=== PATIENT | female | born 1970 | race Caucasian/White ===

== ENCOUNTER → 2024-04-08 | Outpatient (CLI) | payer OTHER ==
--- NOTE | 2024-04-08 09:56 | US ---
EXAMINATION TYPE: US abdomen complete DATE OF EXAM: 04/08/2024 COMPARISON: NONE CLINICAL INDICATION: Female, 53 years old with history of R74.8 ABNORMAL LEVELS OF OTHER S;Elevated l iver enzymes, Hx alcohol use x3/day - quit 1 month ago. Hx Cholecystectomy TECHNIQUE: Multiple sonographic images of the abdomen are obtained. FINDINGS: EXAM MEASUREMENTS: Liver Length: 19.0 cm Gallbladder Wall: Surgically absent cm CBD: 0.7 m Spleen: 15.0 cm Right Kidney: 11.5 x 5.9 x 5.3 cm Left Kidney: 12.2 x 4.3 x 4.7 cm Pancreas: wnl Liver: Increased attenuation hyperechoic lesion may be present within the liver measuring up to 21 mm on image 26 of 66. Gallbladder: Surgically absent Evidence for sonographic Almaraz's sign: No CBD: wnl Spleen: Enlarged; accessory spleen Right Kidney: wnl Left Kidney: wnl Upper IVC: wnl Abd Aorta: wnl The intrahepatic portion of the IVC and proximal abdominal aorta are within normal limits. Common bi le duct is unremarkable. The visualized portions of the pancreas are homogenous. Kidneys are symmetr ic and free of hydronephrosis. No renal lesions are seen. IMPRESSION: 1. Hepatic steatosis. 2. There is a focal area of anterior fat and interdigitating near falciform ligament versus hemangio ma versus other. Consider further evaluation of the liver with cross-sectional imaging CT or MRI for confirmation. Image 26 of 66
== END | disposition home or self-care (01) ==
LOC: RADUSWWP 08:49
PROVIDERS: ATTEND Family Medicine
DX: R74.8 Abnormal levels of other serum enzymes (principal); K76.0 Fatty (change of) liver, not elsewhere classified; Z90.49 Acquired absence of other specified parts of digestive tract
CPT/HCPCS: 76700

== ENCOUNTER → 2024-05-03 | Outpatient (CLI) | payer OTHER ==
--- NOTE | 2024-05-03 13:14 | CT ---
EXAMINATION TYPE: CT abdomen pelvis wo/w con CT DLP: 2225.80 mGycm, Automated exposure control for dose reduction was used. DATE OF EXAM: 05/03/2024 12:31 PM COMPARISON: Abdominal ultrasound 04/08/2024 CLINICAL INDICATION:Female, 53 years old with history of K76.9 HEPATIC LESION; Elevated liver enzymes , hepatic lesion TECHNIQUE: Standard CT of the abdomen and pelvis before and after the uneventful administration of 100 mL Isovue 300 intravenously. Oral contrast was administered. Coronal and sagittal reformats were performed. FINDINGS: LOWER CHEST: Unremarkable ABDOMEN LIVER: Mildly enlarged measuring 19.9 cm in CC dimension. Diffuse low-attenuation of the liver. Ill-d efined region of subtle hyperattenuation in the region of falciform ligament compared to the surround ing parenchyma. GALLBLADDER AND BILE DUCTS: The gallbladder is surgically absent. No biliary ductal dilatation. PANCREAS: Unremarkable. SPLEEN: Mildly enlarged measuring 14.5 cm in AP dimension. ADRENAL GLANDS: Unremarkable. KIDNEYS AND URETERS: No evidence of hydronephrosis. Nonobstructive right lower pole 3 mm calculus. Co ntrast is demonstrated within both collecting systems on the delayed phase. PELVIS BLADDER: Incompletely distended but grossly unremarkable. REPRODUCTIVE: Unremarkable. ABDOMEN & PELVIS STOMACH AND BOWEL: Small hiatal hernia with gastric sleeve changes.Enteric contrast reaches the mid s mall bowel. Distal colonic diverticulosis without evidence for acute diverticulitis. Submucosal fat d eposition within the ascending colon. No evidence of bowel obstruction. PERITONEUM: No evidence of pneumoperitoneum. Small amount of free fluid within the abdomen and pelvis . VASCULATURE: No evidence of aortic aneurysm. Pelvic phleboliths. MUSCULOSKELETAL: No acute osseous abnormalities. Postsurgical changes from right total hip arthroplas ty. Mild degenerative disc disease. LYMPH NODES: No gross evidence for lymphadenopathy. SOFT TISSUE/ABDOMINAL WALL: Left gluteal soft tissue 2.5 cm lesion. IMPRESSION: 1. Patchy geographic hypoattenuation within the liver most consistent with geographic fatty liver di sease. No focal lesion corresponding to ultrasound finding. Probable fatty infiltration. 2. Mild hepatosplenomegaly. 3. Small ascites throughout the abdomen and pelvis. 4. Colonic diverticulosis with submucosal fat deposition within the ascending colon. Can be seen wit h chronic inflammatory disease. 5. Nonobstructive right renal calculus. 6. Indeterminate left gluteal soft tissue 2.5 cm lesion. May represent a hematoma versus other etiol ogies. Can be further evaluated with ultrasound as clinically indicated. [facility], , 05/03/2024 1:12 PM
== END | disposition home or self-care (01) ==
LOC: RADCTMAIN 10:07
PROVIDERS: ATTEND Family Medicine
DX: Z12.31 Encounter for screening mammogram for malignant neoplasm of breast
CPT/HCPCS: 74178

== ENCOUNTER 2024-05-10 08:02 | Emergency (ER) | payer OTHER ==
[2024-05-10 08:07] VITALS: TEMP 97.9
[2024-05-10] MEDS: MORPHINE SULFATE 4 MG/ML SYRINGE IVP STA (08:24)
[2024-05-10] MEDS: KETOROLAC 15 MG/ML 1 ML VIAL IVP STA (08:25)
[2024-05-10] MEDS: LIDOCAINE 4% PATCH TOPICAL ONE (08:25)
--- NOTE | 2024-05-10 08:26 | ED ---
Fall HPI - General Chief Complaint: Fall Stated Complaint: Back Pain Time Seen by Provider: 05/10/24 08:07 Source: patient, RN notes reviewed Mode of arrival: wheelchair Limitations: no limitations - History of Present Illness Initial Comments: This is a 53-year-old female who presents to the emergency department for pain over the left rib cage. Patient fell last week and landed on her left side. She was initially just having pain over the left rib cage. She went to urgent care and had x-rays that were negative. States that since then she has started to become nauseous with increasing pain. Pain is now in the left upper quadrant. Unsure if the pain she originally had is getting worse or if this is related to something different. Pain is worse if she tries to take a deep breath. States that she is also very tender to the touch. MD Complaint: fall - Related Data Previous Rx's Medication Instructions Recorded Ketorolac [Toradol] 10 mg PO Q6HR PRN #15 tab 05/10/24 Lidocaine 5% Patch [Lidoderm 5% 1 patch TOPICAL DAILY PRN #30 patch 05/10/24 Patch] methocarbamoL [Robaxin-750] 1,500 mg PO TID PRN #30 tab 05/10/24 Allergies Allergy/AdvReac Type Severity Reaction Status Date / Time No Known Allergies Allergy Verified 05/10/24 08:07 Review of Systems ROS Statement: Those systems with pertinent positive or pertinent negative responses have been documented in the HPI. ROS Other: All systems not noted in ROS Statement are negative. Past Medical History Past Medical History: Hypertension History of Any Multi-Drug Resistant Organisms: MRSA Date of last positivie culture/infection: 01/2024 MDRO Source:: R leg Past Surgical History: Cholecystectomy, Orthopedic Surgery Additional Past Surgical History / Comment(s): gastric bypass Past Psychological History: Anxiety Smoking Status: Never smoker Past Alcohol Use History: None Reported Past Drug Use History: None Reported General Exam Limitations: no limitations General appearance: alert, in no apparent distress Head exam: Present: atraumatic, normocephalic, normal inspection Respiratory exam: Present: normal lung sounds bilaterally, chest wall tenderness. Absent: respiratory distress, wheezes, rales, rhonchi, stridor Cardiovascular Exam: Present: regular rate, normal rhythm, normal heart sounds. Absent: systolic murmur, diastolic murmur, rubs, gallop, clicks GI/Abdominal exam: Present: soft, tenderness (LUQ), normal bowel sounds. Absent: distended Neurological exam: Present: alert, oriented X3, CN II-XII intact Psychiatric exam: Present: normal affect, normal mood Skin exam: Present: warm, dry, intact, normal color. Absent: rash Course Vital Signs 05/10/24 05/10/24 08:03 10:53 Temperature 97.9 F Pulse Rate 119 H 68 Respiratory 22 16 Rate Blood Pressure 149/90 112/70 O2 Sat by Pulse 99 99 Oximetry Medical Decision Making - Medical Decision Making This is a 53 year old female who presents to the emergency department for left sided rib pain. Was pt. sent in by a medical professional or institution? @ -No Did you speak to anyone other than the patient for history? @ -No Did you review nursing and triage notes? @ -Yes, and I agree, it is accurate with regards to the patient's symptoms. Were old charts reviewed? @ -No Differential Diagnosis? @ -Differential Rib Pain: Contusion, pneumothorax, rib fracture, pancreatitis, this is not meant to be an all-inclusive list. EKG interpreted by me (3pts min.)? @ -EKG interpreted by me demonstrating the following: Sinus rhythm. Ventricular rate 60 bpm, LA interval 149 ms, QRS duration 98 ms, QTc 480 ms. X-rays interpreted by me (1pt min.)? @ -Chest x-ray obtained, my interpretation identifies no localized cons olidations or infiltrates. CT interpreted by me (1pt min.)? @ -CT scan of the chest obtained. My interpretation identifies no evidence of any rib fractures. U/S interpreted by me (1pt. min.)? @ -Not obtained What testing was considered but not performed? (CT, X-rays, U/S, labs)? Why? @ -None What meds were considered but not given? Why? @ -None Did you discuss the management of the patient with other professionals? @ -No Did you reconcile home meds? @ -No Was smoking cessation discussed for >3mins.? @ -No Was critical care preformed (if so, how long)? @ -No Were there social determinants of health that impacted care today? How? (Homelessness, low income, unemployed, alcoholism, drug addiction, transportation, low edu. Level, literacy, decrease access to med. care, correction, rehab)? @ -No Was there de-escalation of care discussed even if they declined? (Discuss DNR or withdrawal of care, Hospice)? @ -No What co-morbidities impacted this encounter? (DM, HTN, Smoking, COPD, CAD, Cancer, CVA, Hep., AIDS, mental health diagnosis, sleep apnea, morbid obesity)? @ -Liver problems, HTN Was patient admitted / discharged? @ -Discharged. Given patient's concern for the pain worsening and potentially changing, we did obtain lab work. Lactic acid is elevated and potassium was slightly decreased. She was treated with IV fluids and 40 mEq of K-Dur. Elevated bilirubin is consistent with patient's known history of liver disease. We initially obtained an x-ray of the left rib cage and chest, however no acute fracture was identified. We then proceeded with a CT scan of the chest, however again there was no acute fracture or other acute process identified. Pain was managed in the emergency department. Prescription for Toradol, Robaxin, and lidocaine patches provided. She is advised to take several deep breaths an hour despite the pain to reduce the risk of developing a secondary pneumonia. Case discussed with ED attending Dr. Ontiveros. Return precautions reviewed in depth, the patient is instructed to return to the emergency department with any new, worsening, or concerning symptoms. Patient verbalized understanding. Undiagnosed new problem with uncertain prognosis? @ -None Drug Therapy requiring intensive monitoring for toxicity (Heparin, Nitro, Insulin, Cardizem)? @ -None Were any procedures done? @ -None Diagnosis/symptom? @ -Fall, left rib contusion Acute, or Chronic, or Acute on Chronic? @ -Acute Uncomplicated (without systemic symptoms) or Complicated (systemic symptoms)? @ -Uncomplicated Side effects of treatment? @ -None Exacerbation, Progression, or Severe Exacerbation] @ -Not applicable Poses a threat to life or bodily function? @ -No - Lab Data Result diagrams: 05/10/24 08:21 05/10/24 08:21 Lab Results 05/10/24 05/10/24 05/10/24 Range/Units 08:21 08:21 08:21 WBC 5.1 (3.8-10.6) k/uL RBC 3.12 L (3.80-5.40) m/uL Hgb 9.8 L (11.4-16.0) gm/dL Hct 29.5 L (34.0-46.0) % MCV 94.6 (80.0-100.0) fL MCH 31.5 (25.0-35.0) pg MCHC 33.2 (31.0-37.0) g/dL RDW 14.3 (11.5-15.5) % Plt Count 63 L (150-450) k/uL MPV 8.0 Neutrophils % 78 % Lymphocytes % 12 % Monocytes % 5 % Eosinophils % 2 % Basophils % 0 % Neutrophils # 4.0 (1.3-7.7) k/uL Lymphocytes # 0.6 L (1.0-4.8) k/uL Monocytes # 0.3 (0-1.0) k/uL Eosinophils # 0.1 (0-0.7) k/uL Basophils # 0.0 (0-0.2) k/uL Manual Slide Review Performed Hypochromasia Slight Sodium 138 (137-145) mmol/L Potassium 3.2 L (3.5-5.1) mmol/L Chloride 100 (98-107) mmol/L Carbon Dioxide 25 (22-30) mmol/L Anion Gap 13 mmol/L BUN 8 (7-17) mg/dL Creatinine 0.67 (0.52-1.04) mg/dL Est GFR (CKD-EPI)AfAm >90 (>60 ml/min/1.73 sqM) Est GFR (CKD-EPI)NonAf >90 (>60 ml/min/1.73 sqM) Glucose 95 (74-99) mg/dL Lactic Ac Sepsis Rflx Plasma Lactic Acid Frank 3.2 H* (0.7-2.0) mmol/L Calcium 9.3 (8.4-10.2) mg/dL Total Bilirubin 3.0 H (0.2-1.3) mg/dL AST 63 H (14-36) U/L ALT 19 (4-34) U/L Alkaline Phosphatase 108 (38-126) U/L Total Protein 8.1 (6.3-8.2) g/dL Albumin 4.0 (3.5-5.0) g/dL Amylase 72 (30-110) U/L Lipase 115 (23-300) U/L 10/01/24 Range/Units 09:12 WBC (3.8-10.6) k/uL RBC (3.80-5.40) m/uL Hgb (11.4-16.0) gm/dL Hct (34.0-46.0) % MCV (80.0-100.0) fL MCH (25.0-35.0) pg MCHC (31.0-37.0) g/dL RDW (11.5-15.5) % Plt Count (150-450) k/uL MPV Neutrophils % % Lymphocytes % % Monocytes % % Eosinophils % % Basophils % % Neutrophils # (1.3-7.7) k/uL Lymphocytes # (1.0-4.8) k/uL Monocytes # (0-1.0) k/uL Eosinophils # (0-0.7) k/uL Basophils # (0-0.2) k/uL Manual Slide Review Hypochromasia Sodium (137-145) mmol/L Potassium (3.5-5.1) mmol/L Chloride (98-107) mmol/L Carbon Dioxide (22-30) mmol/L Anion Gap mmol/L BUN (7-17) mg/dL Creatinine (0.52-1.04) mg/dL Est GFR (CKD-EPI)AfAm (>60 ml/min/1.73 sqM) Est GFR (CKD-EPI)NonAf (>60 ml/min/1.73 sqM) Glucose (74-99) mg/dL Lactic Ac Sepsis Rflx Y Plasma Lactic Acid Frank (0.7-2.0) mmol/L Calcium (8.4-10.2) mg/dL Total Bilirubin (0.2-1.3) mg/dL AST (14-36) U/L ALT (4-34) U/L Alkaline Phosphatase (38-126) U/L Total Protein (6.3-8.2) g/dL Albumin (3.5-5.0) g/dL Amylase (30-110) U/L Lipase (23-300) U/L - Radiology Data Radiology results: report reviewed, image reviewed Disposition Clinical Impression: Fall, Contusion of rib on left side Disposition: HOME SELF-CARE Instructions (If sedation given, give patient instructions): Rib Contusion (ED) Additional Instructions: Return to the emergency department with any new, worsening, or concerning symptoms. Take the Toradol with Tylenol as needed for pain relief. If you choose to take the Toradol, do not take any other anti-inflammatories such as ibuprofen, take one or the other. Take the Robaxin as 1 to 2 tablets up to 3-4 times daily. You can apply the lidocaine patches daily. Make sure you take several deep breaths an hour despite the pain to reduce the risk of developing a secondary pneumonia. Follow up with your primary care provider in 1-2 days. Prescriptions: Lidocaine 5% Patch [Lidoderm 5% Patch] 1 patch TOPICAL DAILY PRN #30 patch PRN Reason: Pain methocarbamoL [Robaxin-750] 1,500 mg PO TID PRN #30 tab PRN Reason: Pain Ketorolac [Toradol] 10 mg PO Q6HR PRN #15 tab PRN Reason: Pain Is patient prescribed a controlled substance at d/c from ED?: No Referrals: Janett Hernandez MD [Primary Care Provider] - 1-2 days Time of Disposition: 10:41
[2024-05-10 08:30] LABS: Basophils % (A) 0 %; Eosinophils # (A) 0.1 k/uL (0-0.7); Eosinophils % (A) 2 %; HCT 29.5 % (34.0-46.0); HGB 9.8 gm/dL (11.4-16.0); Hypochromasia Slight; Lymphocytes # (A) 0.6 k/uL (1.0-4.8); Lymphocytes % (A) 12 %; MCH 31.5 pg (25.0-35.0); MCHC 33.2 g/dL (31.0-37.0); MCV 94.6 fL (80.0-100.0); Monocytes # (A) 0.3 k/uL (0-1.0); Monocytes % (A) 5 %; Neutrophils % (A) 78 %; RBC 3.12 m/uL (3.80-5.40); RDW 14.3 % (11.5-15.5); WBC 5.1 k/uL (3.8-10.6)
[2024-05-10 08:48] LABS: ALT 19 U/L (4-34); AST 63 U/L (14-36); African American GFR (CKD) >90 (>60 ml/min/1.73 sqM); Alkaline Phosphatase 108 U/L (38-126); Amylase 72 U/L (30-110); Anion Gap 13 mmol/L; Blood Urea Nitrogen 8 mg/dL (7-17); Calcium 9.3 mg/dL (8.4-10.2); Carbon Dioxide 25 mmol/L (22-30); Chloride 100 mmol/L (98-107); Glucose 95 mg/dL (74-99); Lipase 115 U/L (23-300); Non-African American GFR(CKD) >90 (>60 ml/min/1.73 sqM); Potassium 3.2 mmol/L (3.5-5.1); Sodium 138 mmol/L (137-145); Total Protein 8.1 g/dL (6.3-8.2)
--- NOTE | 2024-05-10 08:58 | XR ---
EXAMINATION TYPE: XR ribs LT w pa chest xray DATE OF EXAM: 05/10/2024 COMPARISON: NONE HISTORY: Pain TECHNIQUE: Single view of the chest 5 views of the ribs are submitted. FINDINGS: Suggested mild linear basilar atelectasis left lung base. No Evidence for pneumothorax. No evidence for focal contusion. Mediastinal structures are midline. Evaluation of the ribs fails to demonstrate evidence for displaced rib fracture or secondary sign of rib fracture. IMPRESSION: Suggested mild linear basilar atelectasis left lung base. No evidence for a displaced lef t-sided rib fracture or pneumothorax. [facility], , 05/10/2024 8:55 AM
[2024-05-10] MEDS: POTASSIUM CHLORIDE ER 20 MEQ TAB.ER PO STA (09:39)
[2024-05-10] MEDS: SODIUM CHLORIDE 0.9% 1,000 ML IV STA (09:40)
[2024-05-10 09:47] LABS: Platelet Count 63 k/uL (150-450)
--- NOTE | 2024-05-10 10:29 | CT ---
EXAMINATION TYPE: CT chest wo con CT DLP: 389.3 mGycm, Automated exposure control for dose reduction was used. DATE OF EXAM: 05/10/2024 10:11 AM COMPARISON: Rib radiographs 05/10/2024, CT abdomen and pelvis 05/03/2024 CLINICAL INDICATION:Female, 53 years old with history of Left rib cage pain after fall; PHH, Left rib cage pain after fall TECHNIQUE: Multiple axial images were obtained through the chest without IV contrast. Lack of IV or o ral contrast limits evaluation of solid and hollow organ viscera. . Coronal and sagittal reformats re viewed. FINDINGS: LUNGS/ PLEURA: No pleural effusion, pneumothorax, focal consolidation. No suspicious pulmonary nodula r mass. Minimal linear atelectasis within the right middle lobe. Minimal dependent left lower lobe s ubsegmental atelectasis. AIRWAY: Patent and unremarkable.. HEART: Size within normal limits. No pericardial effusion. Moderate coronary arterial calcifications most prominent along the LAD. MEDIASTINUM: No gross evidence of adenopathy. VASCULATURE: No aortic aneurysm. Incidental aberrant right subclavian artery with posterior esophage al course. MUSCULOSKELETAL: No acute osseous abnormalities SOFT TISSUES/LYMPH NODES: Unremarkable. LOWER NECK: No significant findings. UPPER ABDOMEN: Enlarged bulky spleen redemonstrated measuring up to 14.0 cm in AP dimension. Patchy g eographic regions of low attenuation throughout the liver are redemonstrated. Liver is enlarged measu ring 19.9 cm in AP dimension. Noncirrhotic morphology. Small ascites surrounding the spleen and liver redemonstrated. Slightly increased from prior examination. Postsurgical changes from gastric sleeve with small hiatal hernia demonstrated. Post cholecystectomy changes. IMPRESSION: 1. No CT evidence for an acute thoracic process. No acute osseous and amounted. 2. Patchy geographic low-attenuation throughout the liver most consistent with fatty infiltration as seen on prior CT. Noncirrhotic morphology. Correlate with liver function tests for HU. 3. Hepatosplenomegaly redemonstrated. 4. Slightly increased small volume ascites in the abdomen. [facility], , 05/10/2024 10:26 AM
[2024-05-10] MEDS: ACET/COD 300 MG/30 MG STARTER PACK 6 TAB BTL PO STA (10:48)
[2024-05-10 10:54] VITALS: BP 112/70; PULSE 68; RESP 16
== END 2024-05-10 11:19 | disposition home or self-care (01) ==
LOC: EC 08:02
CPT/HCPCS: 36415; 71250; 80053; 82150; 83605; 83690; 85025; 93005; 96361; 96374; 96375; 99284

== ENCOUNTER 2024-05-25 09:58 | Emergency (ER) | payer OTHER ==
[2024-05-25] MEDS: PANTOPRAZOLE 40 MG/10 ML VIAL IVP STA ×2 (10:40→10:47)
[2024-05-25] MEDS: ONDANSETRON 4 MG/2 ML VIAL IVP STA (10:48)
[2024-05-25] MEDS: SODIUM CHLORIDE 0.9% 1,000 ML IV STA (10:48)
--- NOTE | 2024-05-25 10:48 | ED ---
GI Bleed HPI - General Chief complaint: GI Bleed Stated complaint: Vomiting blood Time Seen by Provider: 05/25/24 10:06 Source: patient, RN notes reviewed Mode of arrival: ambulatory Limitations: no limitations - History of Present Illness Initial comments: This is a 53-year-old female who presents to the emergency department for hematemesis. Patient states that last night she was feeling fatigued and nauseous. This morning she proceeded to vomit and threw up a large amount of bright red blood with clots. Reports generalized abdominal discomfort and bloating. Denies any history of similar problems in the past. Not taking any blood thinners. Denies any history of ulcers or GERD. MD complaint: gross hematemesis - Related Data Home Medications Medication Instructions Recorded Confirmed hydroCHLOROthiazide [Hydrodiuril] 25 mg PO DAILY 05/25/24 05/25/24 traMADol HCL 50 mg PO Q6H PRN 05/25/24 05/25/24 Allergies Allergy/AdvReac Type Severity Reaction Status Date / Time No Known Allergies Allergy Verified 05/25/24 12:46 Review of Systems ROS Statement: Those systems with pertinent positive or pertinent negative responses have been documented in the HPI. ROS Other: All systems not noted in ROS Statement are negative. Past Medical History Past Medical History: Hypertension History of Any Multi-Drug Resistant Organisms: MRSA Date of last positivie culture/infection: 01/2024 MDRO Source:: R leg Past Surgical History: Cholecystectomy, Orthopedic Surgery Additional Past Surgical History / Comment(s): gastric bypass Past Psychological History: Anxiety Smoking Status: Never smoker Past Alcohol Use History: Daily Past Drug Use History: None Reported General Exam Limitations: no limitations General appearance: alert, in no apparent distress Head exam: Present: atraumatic, normocephalic, normal inspection Respiratory exam: Present: normal lung sounds bilaterally. Absent: respiratory distress, wheezes, rales, rhonchi, stridor Cardiovascular Exam: Present: regular rate, normal rhythm, normal heart sounds. Absent: systolic murmur, diastolic murmur, rubs, gallop, clicks GI/Abdominal exam: Present: soft, tenderness (diffuse), normal bowel sounds. Absent: distended Neurological exam: Present: alert, oriented X3, CN II-XII intact Psychiatric exam: Present: normal affect, normal mood Skin exam: Present: warm, dry, intact, normal color. Absent: rash Course Vital Signs 05/25/24 05/25/24 05/25/24 09:59 10:31 10:45 Temperature 98.2 F Pulse Rate 135 H Respiratory 18 Rate Blood Pressure 122/75 81/48 O2 Sat by Pulse 98 99 99 Oximetry 05/25/24 05/25/24 05/25/24 11:00 11:15 11:30 Temperature Pulse Rate Respiratory Rate Blood Pressure 124/84 119/77 140/89 O2 Sat by Pulse 100 99 Oximetry 05/25/24 05/25/24 05/25/24 11:45 12:00 12:15 Temperature Pulse Rate 105 H 103 H Respiratory Rate Blood Pressure 144/95 131/86 139/95 O2 Sat by Pulse 99 99 Oximetry 05/25/24 05/25/24 05/25/24 12:30 12:45 13:15 Temperature Pulse Rate 117 H 117 H 115 H Respiratory Rate Blood Pressure 126/108 149/93 O2 Sat by Pulse Oximetry 05/25/24 05/25/24 13:30 13:41 Temperature 98.6 F Pulse Rate 113 H 118 H Respiratory 16 Rate Blood Pressure 127/80 112/76 O2 Sat by Pulse Oximetry Medical Decision Making - Medical Decision Making This is a 53 year old female who presents to the emergency department for hematemesis. Was pt. sent in by a medical professional or institution? @ -No Did you speak to anyone other than the patient for history? @ -No Did you review nursing and triage notes? @ -Yes, and I agree, it is accurate with regards to the patient's symptoms. Were old charts reviewed? @ -No Differential Diagnosis? @ -Differential GI Bleed: Esophageal varices, aortoenteric fistula, Karine-Jiang, gastritis, peptic ulcer disease, diverticulosis, inflammatory bowel disease, hemorrhoids, fissure, colitis, malignancy, Meckel's diverticulum, this is not meant to be an all-in clusive list. EKG interpreted by me (3pts min.)? @ -EKG interpreted by me demonstrating the following: Sinus tachycardia. Ventricular rate 109 bpm, ME interval 128 ms, QRS duration 90 ms, QTc 427 ms. X-rays interpreted by me (1pt min.)? @ -Not obtained CT interpreted by me (1pt min.)? @ -CTA of the abdomen and pelvis obtained. My interpretation identifies no active GI bleed. U/S interpreted by me (1pt. min.)? @ -Not obtained What testing was considered but not performed? (CT, X-rays, U/S, labs)? Why? @ -None What meds were considered but not given? Why? @ -None Did you discuss the management of the patient with other professionals? @ -Yes, Dr. Ring at [facility], who accepts the patient for ED to ED transfer. Did you reconcile home meds? @ -No Was smoking cessation discussed for >3mins.? @ -No Was critical care preformed (if so, how long)? @ -Yes, >35 minutes Were there social determinants of health that impacted care today? How? (Homelessness, low income, unemployed, alcoholism, drug addiction, t ransportation, low edu. Level, literacy, decrease access to med. care, usp, rehab)? @ -No Was there de-escalation of care discussed even if they declined? (Discuss DNR or withdrawal of care, Hospice)? @ -No What co-morbidities impacted this encounter? (DM, HTN, Smoking, COPD, CAD, Cancer, CVA, Hep., AIDS, mental health diagnosis, sleep apnea, morbid obesity)? @ -None Was patient admitted / discharged? @ -Transferred. Lab work demonstrates a hemoglobin of 9.0. Lactic acid elevated at 3.5 and magnesium low at 1.1. 2 g of magnesium sulfate administered. Patient did have a few episodes of emesis in the emergency department and this appeared to be roxanne bright red hematemesis with multiple blood clots. CTA of the abdomen and pelvis demonstrates no acute GI bleed. She has marked hepatic steatosis with splenomegaly and cirrhotic appearance. Paraesophageal varices are present as well, which is a potential source of the bleeding. She was treated with 80 mg of Protonix, octreotide infusion, and TXA. She did continue to vomit despite Zofran and Reglan and was then given a dose of Compazine. Patient transferred to [facility] as a stat ED to ED transfer for upper GI bleed. 2 units of PRBCs ordered prior to transfer per [facility] request. Dr. Ring is the accepting ED provider. Case discussed with ED attending, Dr. Mendez. Undiagnosed new problem with uncertain prognosis? @ -None Drug Therapy requiring intensive monitoring for toxicity (Heparin, Nitro, Insulin, Cardizem)? @ -None Were any procedures done? @ -None Diagnosis/symptom? @ -Upper GI bleed Acute, or Chronic, or Acute on Chronic? @ -Acute Uncomplicated (without systemic symptoms) or Complicated (systemic symptoms)? @ -Complicated Side effects of treatment? @ -None Exacerbation, Progression, or Severe Exacerbation] @ -Not applicable Poses a threat to life or bodily function? @ -Yes, can lead to further blood loss and - Lab Data Result diagrams: 05/25/24 10:32 05/25/24 10:32 Lab Results 05/25/24 05/25/24 05/25/24 Range/Units 10:15 10:28 10:32 WBC 5.5 (3.8-10.6) k/uL RBC 2.85 L (3.80-5.40) m/uL Hgb 9.0 L (11.4-16.0) gm/dL Hct 27.0 L (34.0-46.0) % MCV 94.7 (80.0-100.0) fL MCH 31.5 (25.0-35.0) pg MCHC 33.3 (31.0-37.0) g/dL RDW 15.8 H (11.5-15.5) % Plt Count 62 L (150-450) k/uL MPV 8.2 Neutrophils % 83 % Lymphocytes % 10 % Monocytes % 5 % Eosinophils % 0 % Basophils % 0 % Neutrophils # 4.6 (1.3-7.7) k/uL Lymphocytes # 0.5 L (1.0-4.8) k/uL Monocytes # 0.3 (0-1.0) k/uL Eosinophils # 0.0 (0-0.7) k/uL Basophils # 0.0 (0-0.2) k/uL Manual Slide Review Performed Hypochromasia Slight PT (10.0-12.5) sec INR (<1.2) APTT (22.0-30.0) sec Sodium (137-145) mmol/L Potassium (3.5-5.1) mmol/L Chloride (98-107) mmol/L Carbon Dioxide (22-30) mmol/L Anion Gap mmol/L BUN (7-17) mg/dL Creatinine (0.52-1.04) mg/dL Est GFR (CKD-EPI)AfAm (>60 ml/min/1.73 sqM) Est GFR (CKD-EPI)NonAf (>60 ml/min/1.73 sqM) Glucose (74-99) mg/dL Lactic Ac Sepsis Rflx Plasma Lactic Acid Frank (0.7-2.0) mmol/L Calcium (8.4-10.2) mg/dL Magnesium (1.6-2.3) mg/dL Total Bilirubin (0.2-1.3) mg/dL AST (14-36) U/L ALT (4-34) U/L Alkaline Phosphatase (38-126) U/L Total Protein (6.3-8.2) g/dL Albumin (3.5-5.0) g/dL Blood Type O Positive Blood Type Confirm O Positive Blood Type Recheck No Previous Record Bld Type Recheck Status CABO Indicated Antibody Screen NEGATIVE Crossmatch See Detail Spec Expiration Date 05/28/2024 - 233105/25/24 05/25/24 05/25/24 Range/Units 10:32 10:32 10:32 WBC (3.8-10.6) k/uL RBC (3.80-5.40) m/uL Hgb (11.4-16.0) gm/dL Hct (34.0-46.0) % MCV (80.0-100.0) fL MCH (25.0-35.0) pg MCHC (31.0-37.0) g/dL RDW (11.5-15.5) % Plt Count (150-450) k/uL MPV Neutrophils % % Lymphocytes % % Monocytes % % Eosinophils % % Basophils % % Neutrophils # (1.3-7.7) k/uL Lymphocytes # (1.0-4.8) k/uL Monocytes # (0-1.0) k/uL Eosinophils # (0-0.7) k/uL Basophils # (0-0.2) k/uL Manual Slide Review Hypochromasia PT 14.0 H (10.0-12.5) sec INR 1.3 H (<1.2) APTT 24.8 (22.0-30.0) sec Sodium 139 (137-145) mmol/L Potassium 3.3 L (3.5-5.1) mmol/L Chloride 106 (98-107) mmol/L Carbon Dioxide 22 (22-30) mmol/L Anion Gap 11 mmol/L BUN 12 (7-17) mg/dL Creatinine 0.56 (0.52-1.04) mg/dL Est GFR (CKD-EPI)AfAm >90 (>60 ml/min/1.73 sqM) Est GFR (CKD-EPI)NonAf >90 (>60 ml/min/1.73 sqM) Glucose 154 H (74-99) mg/dL Lactic Ac Sepsis Rflx Plasma Lactic Acid Frank 3.5 H* (0.7-2.0) mmol/L Calcium 8.8 (8.4-10.2) mg/dL Magnesium 1.1 L (1.6-2.3) mg/dL Total Bilirubin 3.9 H (0.2-1.3) mg/dL AST 83 H (14-36) U/L ALT 19 (4-34) U/L Alkaline Phosphatase 133 H (38-126) U/L Total Protein 7.7 (6.3-8.2) g/dL Albumin 3.8 (3.5-5.0) g/dL Blood Type Blood Type Confirm Blood Type Recheck Bld Type Recheck Status Antibody Screen Crossmatch Spec Expiration Date 05/25/24 Range/Units 11:31 WBC (3.8-10.6) k/uL RBC (3.80-5.40) m/uL Hgb (11.4-16.0) gm/dL Hct (34.0-46.0) % MCV (80.0-100.0) fL MCH (25.0-35.0) pg MCHC (31.0-37.0) g/dL RDW (11.5-15.5) % Plt Count (150-450) k/uL MPV Neutrophils % % Lymphocytes % % Monocytes % % Eosinophils % % Basophils % % Neutrophils # (1.3-7.7) k/uL Lymphocytes # (1.0-4.8) k/uL Monocytes # (0-1.0) k/uL Eosinophils # (0-0.7) k/uL Basophils # (0-0.2) k/uL Manual Slide Review Hypochromasia PT (10.0-12.5) sec INR (<1.2) APTT (22.0-30.0) sec Sodium (137-145) mmol/L Potassium (3.5-5.1) mmol/L Chloride (98-107) mmol/L Carbon Dioxide (22-30) mmol/L Anion Gap mmol/L BUN (7-17) mg/dL Creatinine (0.52-1.04) mg/dL Est GFR (CKD-EPI)AfAm (>60 ml/min/1.73 sqM) Est GFR (CKD-EPI)NonAf (>60 ml/min/1.73 sqM) Glucose (74-99) mg/dL Lactic Ac Sepsis Rflx Y Plasma Lactic Acid Frank (0.7-2.0) mmol/L Calcium (8.4-10.2) mg/dL Magnesium (1.6-2.3) mg/dL Total Bilirubin (0.2-1.3) mg/dL AST (14-36) U/L ALT (4-34) U/L Alkaline Phosphatase (38-126) U/L Total Protein (6.3-8.2) g/dL Albumin (3.5-5.0) g/dL Blood Type Blood Type Confirm Blood Type Recheck Bld Type Recheck Status Antibody Screen Crossmatch Spec Expiration Date - Radiology Data Radiology results: report reviewed, image reviewed Critical Care Time Critical Care Time: Yes Critical Care Time: >35 minutes Disposition Clinical Impression: Upper GI bleed Disposition: OTHER INSTITUTION NOT DEFINED Referrals: Janett Hernandez MD [Primary Care Provider] - 1-2 days - Out of Hospital Transfer - Req. Specs Out of Hospital Transfer - Requested Specifics: Other Emergency Center ([facility]
[2024-05-25 11:06] LABS: ALT 19 U/L (4-34); AST 83 U/L (14-36); African American GFR (CKD) >90 (>60 ml/min/1.73 sqM); Albumin 3.8 g/dL (3.5-5.0); Alkaline Phosphatase 133 U/L (38-126); Anion Gap 11 mmol/L; Blood Urea Nitrogen 12 mg/dL (7-17); Calcium 8.8 mg/dL (8.4-10.2); Carbon Dioxide 22 mmol/L (22-30); Chloride 106 mmol/L (98-107); Glucose 154 mg/dL (74-99); Magnesium 1.1 mg/dL (1.6-2.3); Non-African American GFR(CKD) >90 (>60 ml/min/1.73 sqM); Potassium 3.3 mmol/L (3.5-5.1); Sodium 139 mmol/L (137-145); Total Bilirubin 3.9 mg/dL (0.2-1.3); Total Protein 7.7 g/dL (6.3-8.2)
[2024-05-25 11:09] LABS: Basophils % (A) 0 %; Eosinophils % (A) 0 %; Hypochromasia Slight; Lymphocytes # (A) 0.5 k/uL (1.0-4.8); Lymphocytes % (A) 10 %; MCH 31.5 pg (25.0-35.0); MCHC 33.3 g/dL (31.0-37.0); MCV 94.7 fL (80.0-100.0); Mean Platelet Volume 8.2; Monocytes # (A) 0.3 k/uL (0-1.0); Monocytes % (A) 5 %; Neutrophils # (A) 4.6 k/uL (1.3-7.7); Neutrophils % (A) 83 %; RBC 2.85 m/uL (3.80-5.40); RDW 15.8 % (11.5-15.5); WBC 5.5 k/uL (3.8-10.6)
[2024-05-25 11:22] LABS: INR 1.3 (<1.2); Partial Thromboplastin Time 24.8 sec (22.0-30.0); Platelet Count 62 k/uL (150-450)
[2024-05-25] MEDS: HYDROmorphone 1 MG/ML 1 ML SYRINGE IVP STA (11:55)
[2024-05-25] MEDS: MAGNESIUM SULFATE-D5W PMX 1 GM in DEXTROSE/WATER 1 100ML.BAG IVPB SCH (11:56)
[2024-05-25] MEDS: METOCLOPRAMIDE 5 MG/ML 2 ML VIAL IVP STA (11:56)
--- NOTE | 2024-05-25 12:25 | CT ---
EXAMINATION TYPE: CT angio abdomen pelvis CT DLP: 1480.8 mGycm, Automated exposure control for dose reduction was used. DATE OF EXAM: 05/25/2024 12:10 PM Comparison: ct abdomen and pelvis 05/03/2024, CT chest 05/10/2024. CLINICAL INDICATION:Female, 53 years old with history of Hematemesis, abdominal pain; Patient fell x 1 week ago-Large bruise to left side of stomach. Vomiting large amounts of blood since this morning. TECHNIQUE: Multiple thin slice sub-millimeter images were obtained through the abdomen and pelvis bef ore and after administration of contrast. Patient was given Isovue 370, 100 cc intravenously. 3-D r econstructed images and maximum intensity projection images were obtained of the abdomen and pelvis. FINDINGS: CTA Abdomen and pelvis: The abdominal aorta does not demonstrate aneurysmal dilatation. No evidence f or dissection or intramural hematoma. No significant atherosclerotic disease. The origins of the sup erior mesenteric artery, renal arteries, inferior mesenteric artery, and celiac axis are patent. The iliac vessels are normal in morphology. VISCERA: The liver, spleen, adrenal glands, kidneys, pancreas, and gallbladder are not optimally enha nced due the arterial phase utilized. LIVER: Surface nodularity to the liver with diffuse patchy low attenuation. No focal arterial enhanci ng lesion identified. Enlarged liver measuring 20.2 cm in CC dimension. GALLBLADDER AND BILE DUCTS: Gallbladder is surgically absent. No biliary ductal dilatation. PANCREAS: Unremarkable. SPLEEN: Borderline prominent spleen measuring up to 13.9 cm in CC dimension. ADRENAL GLANDS: Unremarkable. KIDNEYS AND URETERS: No evidence of hydronephrosis. Punctate nonobstructive right lower pole renal ca lculus. PELVIS BLADDER: Incompletely distended but grossly unremarkable. REPRODUCTIVE: Unremarkable. ABDOMEN & PELVIS STOMACH AND BOWEL: Post surgical changes from gastric sleeve with small hiatal hernia. Colonic divert iculosis without evidence for acute diverticulitis. No hyperdense material identified within the breanne l or esophagus. No evidence of bowel obstruction. PERITONEUM: No evidence of pneumoperitoneum. Increasing small volume simple appearing ascites through out the abdomen and pelvis. VASCULATURE: No evidence of aortic aneurysm. Paraesophageal collateral vessels. MUSCULOSKELETAL: No acute osseous abnormalities. Postsurgical changes right total hip arthroplasty. M ild multilevel degenerative disc disease. LYMPH NODES: No gross evidence for lymphadenopathy. SOFT TISSUE/ABDOMINAL WALL: Similar nonspecific 2.5 cm left gluteal soft tissue lesion. May represent hematoma. Left lateral abdomen soft tissue stranding likely representing contusion. LOWER CHEST: Coronary artery calcifications. Visualized lung bases are clear. IMPRESSION 1. No CTA evidence for acute GI bleed. 2. Marked hepatic steatosis with hepatomegaly and cirrhotic appearance. No focal enhancing lesion id entified. Correlate for HU. 3. Borderline prominent spleen with paraesophageal collateral vessels and increasing small volume sim ple appearing ascites. Findings raise concern for portal hypertension with paraesophageal varices whi ch may be cause of patient's hematemesis. 4. Postsurgical changes from gastric sleeve with small hiatal hernia. 5. Left lateral abdomen and soft tissue fat stranding and focal hyperattenuation likely representing contusion. Additional left gluteal lesion which may represent a hematoma. 6. Colonic diverticulosis. 7. No evidence of abdominal aortic aneurysm or significant atherosclerotic disease. 8. Nonobstructive right renal calculus. [facility], , 05/25/2024 12:23 PM
[2024-05-25] MEDS: MORPHINE SULFATE 2 MG/ML SYRINGE IVP STA (12:38)
[2024-05-25] MEDS: OCTREOTIDE 100 MCG/ML INJ IVP STA (13:16)
[2024-05-25] MEDS: TRANEXAMIC 1,000 MG/100ML-NACL 1,000 MG in SALINE 1 100ML.BAG IV STA (13:20)
[2024-05-25] MEDS: OCTREOTIDE 500 MCG in SODIUM CHLORIDE 0.9% 250 ML IV ONE (13:30)
[2024-05-25] MEDS: PROCHLORPERAZINE INJ 10 MG/2 ML VIAL IVP STA (13:40)
[2024-05-25 13:42] VITALS: BP 112/76; PULSE 118; RESP 16; TEMP 98.6
[2024-05-25] MEDS: ACETAMINOPHEN IV (For NPO) 1,000 MG in EMPTY BAG 1 BAG IVPB STA (13:45)
== END 2024-05-25 14:05 | disposition other institution (70) ==
LOC: EC 09:58
DX: K92.2 Gastrointestinal hemorrhage, unspecified (principal); K92.0 Hematemesis; N20.0 Calculus of kidney
CPT/HCPCS: 36415; 93005; 86900; 86901; 80053; 83605; 83735; 85025; 85610; 85730; 86850; 86920; 74174; 99291; 96365; 96367; 96368; 96375; 96361; 36430; P9016; J0780; J2765; J2405; J2354 ×2; J2270; J3475; Q9967; J2470